=== PATIENT | male | born 1960 | race Two or more races ===

== ENCOUNTER 2020-03-18 14:50 | Emergency (ER) | payer OTHER ==
[~2020-03-18] VITALS: Ht 175.3 cm; Wt 72.6 kg
== END 2020-03-18 19:43 | disposition home or self-care (01) ==
LOC: ER 14:50 → EDBD 16:39 → ER 19:43
DX: R10.11 Right upper quadrant pain (principal); Z20.828 Contact with and (suspected) exposure to other viral communicable diseases